=== PATIENT | male | born 1995 | race African-American/Black ===

== ENCOUNTER 2016-12-12 15:20 | Emergency (ER) | payer SELFPAY ==
[~2016-12-12] VITALS: Ht 167.6 cm; Wt 70.5 kg
[~2016-12-12 15:20] MED LIST: CHLO.12%30 SSP; CLIN150 PO
[2016-12-12 15:22] VITALS: BP 113/63; PULSE 57; RESP 16; TEMP 98.6; O2SAT 97
--- NOTE | 2016-12-12 15:38 | PD ---
Physical Exam Date Seen by Provider: December 12, 2016 Time Seen by Provider: 15:37 Narrative Pt presents to obtain a note to go back to work after having an injury to his foot from walking 7 miles. He called out of work today and needs a note to go back. VSS, awaiting bed placement. Data Data Last Documented VS Vital Signs Date Time Temp Pulse Resp B/P Pulse Ox O2 Delivery O2 Flow Rate FiO2 12/12/16 15:22 98.6 57 16 113/63 97 Room Air [facility] Supervised Visit with GOSIA: Ana Cristina Olsen December 12, 2016 15:38
--- NOTE | 2016-12-12 16:32 | PD ---
HPI Chief Complaint: Medical Clearance Time Seen by Provider: 16:29 Travel History International Travel<30 days: No Contact w/Intl Traveler<30days: No Traveled to known affect area: No History of Present Illness HPI 21-year-old male presents emergency department requesting an note to return back to work because he called out today. He said he has been walking several miles to and from work for the last few days and he doesn't want to do it again tonight after work so he called out. 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 He has no emergent medical complaints. No other modifying factors or associated signs and symptoms. History Social History Alcohol Use: Yes (OCCASIONAL) Tobacco Use: No Allergies-Medications (Allergen,Severity, Reaction): Coded Allergies: Penicillin (Verified Allergy, Intermediate, hives and itching, 12/30/13) Uncoded Allergies: ALL 'CILLINS (Allergy, Severe, 07/12/13) Reported Meds & Prescriptions Reported Meds & Active Scripts Active Cleocin (Clindamycin HCl) 150 Mg Cap 300 Mg PO Q6 10 Days Peridex Oral Rinse (Chlorhexidine Gluconate) 0.12 % Sabra 15 Ml SSP Q12HR 10 Days Review of Systems Except as stated in HPI: all other systems reviewed are Neg Physical Exam Narrative GENERAL: Well-nourished, well-developed male patient, in no acute distress SKIN: Warm and dry. HEAD: Atraumatic. Normocephalic. EYES: Pupils equal and round. No scleral icterus. No injection or drainage. ENT: Mucosa pink and moist. Airway patent. NECK: Trachea midline. CARDIOVASCULAR: Regular rate. RESPIRATORY: No accessory muscle use. GASTROINTESTINAL: Flat. MUSCULOSKELETAL: No obvious deformities. No clubbing. No cyanosis. No edema. NEUROLOGICAL: Awake and alert. Oriented 3. No obvious cranial nerve deficits. Motor grossly within normal limits. Normal speech. PSYCHIATRIC: Appropriate mood and affect; insight and judgment normal. Data Data Last Documented VS Vital Signs Date Time Temp Pulse Resp B/P Pulse Ox O2 Delivery O2 Flow Rate FiO2 12/12/16 15:22 98.6 57 16 113/63 97 Room Air MDM Medical Screen Exam Complete: Yes Emergency Medical Condition: No Primary Impression: Encounter for medical screening examination Condition: Stable Lori Fermin [facility] December 12, 2016 16:32
== END 2016-12-12 16:38 | disposition left against medical advice (07) ==
LOC: NEPK 15:20
DX: Z02.89 Encounter for other administrative examinations (principal)
CPT/HCPCS: 99281

== ENCOUNTER 2017-01-15 17:52 | Emergency (ER) | payer OTHER ==
[~2017-01-15] VITALS: Ht 167.6 cm; Wt 72.0 kg
[2017-01-15 17:55] VITALS: BP 126/77; PULSE 104; RESP 24; TEMP 97; O2SAT 95
--- NOTE | 2017-01-15 18:11 | PD ---
HPI . Right hand laceration sustained earlier today Chief Complaint: Laceration/Skin Injury Time Seen by Provider: 18:10 Travel History International Travel<30 days: No Contact w/Intl Traveler<30days: No Traveled to known affect area: No History of Present Illness HPI 21-year-old male here with a right hand laceration that he sustained while at work. Patient tells me that he saw something falling off of a shelf and his natural reflux was to catch it. Unfortunately with a knife and cut right through his right hand between his thumb and index finger. He does not recall the date of his last tetanus. He rates the pain in this area as 10/10 without radiation elsewhere. He is able to move all of his digits of the right hand. PFSH Past Medical History Developmental Delay: No Diminished Hearing: No Musculoskeletal: Yes (recurrent left shoulder dislocation) Psychiatric: Yes (ADHD,ANGER ISSUES) Immunizations Current: Yes Seizures: No Past Surgical History Appendectomy: No Cholecystectomy: No Other Surgery: No Social History Alcohol Use: Yes (OCCASIONAL) Tobacco Use: No Substance Use: No (DENIES) Allergies-Medications (Allergen,Severity, Reaction): Coded Allergies: Penicillin (Verified Allergy, Intermediate, hives and itching, 12/30/13) Uncoded Allergies: ALL 'CILLINS (Allergy, Severe, 07/12/13) Reported Meds & Prescriptions Reported Meds & Active Scripts Active Tramadol (Tramadol HCl) 50 Mg Tab 50 Mg PO Q8H PRN Bactrim DS (Sulfamethoxazole-Trimethoprim) 800-160 Mg Tab 1 Tab PO BID Review of Systems General / Constitutional: No: Fever Eyes: No: Visual changes HENT: No: Headaches Cardiovascular: No: Chest Pain or Discomfort Respiratory: No: Shortness of Breath Gastrointestinal: No: Abdominal Pain Genitourinary: No: Dysuria Musculoskeletal: No: Pain Skin: Positive Other (right hand laceration ), No Rash Neurologic: No: Weakness Psychiatric: No: Depression Endocrine: No: Polydipsia Hematologic/Lymphatic: No: Easy Bruising Physical Exam Narrative GENERAL: AAO x 3, no acute distress, Well-nourished, well-developed patient. SKIN: Warm and dry. No visible rashes or bruising. right hand thenar space with laceration, bleeding. approximately 6.5 cm, small arteriole bleeding, HEAD: Normocephalic and atraumatic. EYES: No scleral icterus. No injection or drainage. ENT: No nasal drainage noted. Mucous membranes pink. Airway patent. NECK: Supple, trachea midline. No JVD. CARDIOVASCULAR: Regular rate and rhythm without murmurs, gallops, or rubs. RESPIRATORY: Breath sounds equal bilaterally. No accessory muscle use. No rhonchi or rales. GASTROINTESTINAL: Abdomen soft, non-tender, nondistended. EXTREMITIES: No cyanosis or edema. digits of right hand move normally, cap refill normal BACK: Nontender without obvious deformity. No CVA tenderness. 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 Data Data Last Documented VS Vital Signs Date Time Temp Pulse Resp B/P Pulse Ox O2 Delivery O2 Flow Rate FiO2 01/15/17 17:55 97.0 104 24 126/77 95 Room Air Orders Lidocai-Epi 1%-1:100,000 Inj (Xylocaine- (01/15/17 18:15) Tetanus/Diphtheria Tox Adult (Tetanus/Di (01/15/17 18:30) Morphine Inj (Morphine Inj) (01/15/17 18:30) Mandatory Outpatient Referral (01/15/17 19:19) Wound Care (01/15/17 19:20) Support Splint (01/15/17 19:28) MDM Medical Decision Making Medical Screen Exam Complete: Yes Emergency Medical Condition: Yes Medical Record Reviewed: Yes Differential Diagnosis right hand laceration, arteriole bleed, less likely fracture, less likely amputation Narrative Course 21-year-old male here with complaints of right hand laceration that he sustained while at work. Dr. Craft assessed the laceration and also recommends simple repair to the area. Patient gave verbal consent to repair. 12 sutures were placed to the right thenar space. Patient tolerated without incident. He has been given antibiotics to cover for infections. I've recommended outpatient hand follow-up. I recommend wound recheck in 2 days. We have discussed the signs of infections and when to return earlier to the emergency department. I've also provided him with some pain medications. I discussed that he needs to stay home for the next day to allow the area to heal. I also recommend caution at work. I explained to the patient that he will need to have the sutures removed in 7- 10 days. Patient given thumb spica splint to protect the area. Prior to dc, the bleeding had ceased and patient was doing well. Patient verbalized understanding of instructions, questions were answered, and thanked me for their care. I advised them if their condition worsens, please return to the nearest emergency room for further care. Procedures Procedure Narrative LACERATION LOCATION: right thenar space LENGTH: 6.5 cm NUMBER OF STITCHES/NU: 12 REPAIR: The area of the laceration was prepped with Betadine and sterilely draped. The laceration was infiltrated with 1% lidocaine with epi. The wound was copiously irrigated and explored without evidence of foreign body, tendon injury or neurovascular injury. There was a small arteriole bleed. The wound was closed using 4-0 Ethilon. This was a single layer repair. A sterile dressing was applied. The patient was advised to keep the dressing clean and dry. Patient tolerated the procedure well. Diagnosis Primary Impression: Laceration of right hand Qualified Code: S61.411A - Laceration of right hand without foreign body, initial encounter Patient Instructions: General Instructions Departure Forms: Tests/Procedures, Work Release Enter return to work date: Jan 17, 2017 Special Instructions: try not to hit or disturb the sutures in the right hand Additional Instructions: Please return to emergency department if your symptoms return or worsen. Follow up with your primary care provider. Take medications as prescribed. Someone will contact you regarding the hand referral. Keep area clean and dry. Use gauze as we discussed and change 1-2 times a day. Watch for signs of infection: fever, redness, swelling, warmth, pus or drainage , red streaks around the cut, and increased pain from the area. If you received a tetanus shot, you may experience tenderness at the injection site. This is normal. Return to the emergency department in 2 days for a wound check. These sutures (12) will need to be removed in 7-10 days, please return to the ED for removal or follow up with your primary care provider. Med/Other Pt SpecificInfo: Prescription(s) given Scripts Tramadol 50 Mg Tab50 Mg PO Q8H PRN (PAIN) #12 TAB Ref 0 Prov:Perico Craft MD 01/15/17 Sulfamethoxazole-Trimethoprim (Bactrim DS)800-160 Mg Tab1 Tab PO BID #20 TAB Prov:Perico Craft MD 01/15/17 Disposition: 01 DISCHARGE HOME Condition: Stable Cris Briones Jan 15, 2017 18:10
[2017-01-15] MEDS ORDERED: LIDOCAINE 1%/EPINEPHrine 1:100,000 SOLN 20 ML VIAL INFIL ONE (18:15)
[2017-01-15] MEDS ORDERED: MORPHINE SULFATE 4 MG/ML INJ IV PUSH ONE (18:30)
[2017-01-15] MEDS ORDERED: TETANUS/DIPHTHERIA TOXOID ADULT 0.5 ML VIAL IM ONE (18:30)
[2017-01-15] MEDS ORDERED: BACT800T5 PO (19:15)
[2017-01-15] MEDS ORDERED: TRAM50TA PO (19:15)
== END 2017-01-15 19:49 | disposition home or self-care (01) ==
LOC: NEPD 17:52
DX: S61.411A Laceration without foreign body of right hand, initial encounter (principal); W26.0XXA Contact with knife, initial encounter; F90.9 Attention-deficit hyperactivity disorder, unspecified type
CPT/HCPCS: 12002; 96374; 99284; J2270; L3908

== ENCOUNTER 2017-01-28 10:35 | Emergency (ER) | payer OTHER ==
[~2017-01-28] VITALS: Ht 167.6 cm; Wt 80.0 kg
[~2017-01-28 10:35] MED LIST changes: +BACT800T5 PO; -CHLO.12%30 SSP; -CLIN150 PO; +TRAM50TA PO
[2017-01-28 10:36] VITALS: BP 120/58; PULSE 68; RESP 15; TEMP 98.1; O2SAT 98
--- NOTE | 2017-01-28 10:57 | PD ---
HPI Chief Complaint: Injury Time Seen by Provider: 10:57 Travel History International Travel<30 days: No Contact w/Intl Traveler<30days: No Traveled to known affect area: No History of Present Illness HPI 21-year-old Afro-[place] male presents the emergency department status post Worker's Comp. injury to the right first webspace with deep laceration between his thumb and index finger. Patient recently was seen on January 15, and wound was closed, patient was placed on Bactrim and some spica splint. Follow-up was supposed to be set up but never occurred according to the patient. She continues to have pain and stiffness in the right thumb, but denies drainage or fevers, or swelling of the first webspace. There are [address] at this time. Patient is not back to work yet. He has not been contacted by his Worker's Comp. provider. I'm not sure that this was originally billed as a Worker's Comp. on his first visit. 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 He denies numbness or tingling in the thumb itself. Pain is still 5 out of 10 worse with movement. He has increased stiffness in this area. He is allergic to "cillins". PFSH Past Medical History ADHD: Yes Developmental Delay: No Diminished Hearing: No Musculoskeletal: Yes (recurrent left shoulder dislocation) Psychiatric: Yes (ADHD,ANGER ISSUES) Immunizations Current: Yes Seizures: No ?: Not Past Surgical History Appendectomy: No Cholecystectomy: No Other Surgery: No Social History Alcohol Use: No Tobacco Use: Yes Substance Use: No Allergies-Medications (Allergen,Severity, Reaction): Coded Allergies: Penicillin (Verified Allergy, Intermediate, hives and itching, 01/28/17) Uncoded Allergies: ALL 'CILLINS (Allergy, Severe, 07/12/13) Reported Meds & Prescriptions Reported Meds & Active Scripts Active Tramadol (Tramadol HCl) 50 Mg Tab 50 Mg PO Q8H PRN Bactrim DS (Sulfamethoxazole-Trimethoprim) 800-160 Mg Tab 1 Tab PO BID Review of Systems Except as stated in HPI: all other systems reviewed are Neg General / Constitutional: No: Fever Eyes: No: Visual changes HENT: No: Headaches Cardiovascular: No: Chest Pain or Discomfort Respiratory: No: Shortness of Breath Gastrointestinal: No: Abdominal Pain Genitourinary: No: Dysuria Musculoskeletal: No: Pain Skin: No Rash Neurologic: No: Weakness Psychiatric: No: Depression Endocrine: No: Polydipsia Hematologic/Lymphatic: No: Easy Bruising Physical Exam Narrative GENERAL: Patient appears in no acute distress. SKIN: Warm and dry. Normal color. Normal turgor. Patient has what appears to be a well healing 6 cm laceration to the right first webspace with [address]. There does not appear to be significant wound dehiscence or signs of infection. The first webspace is tender with palpation however and range of motion is limited secondary to pain and stiffness. HEAD: Atraumatic. Normocephalic. EYES: Pupils equal and round. No scleral icterus. No injection or drainage. ENT: No nasal bleeding or discharge. Mucous membranes pink and moist. NECK: Trachea midline. No JVD. CARDIOVASCULAR: Regular rate and rhythm. RESPIRATORY: No accessory muscle use. Clear to auscultation. Breath sounds equal bilaterally. MUSCULOSKELETAL: Extremities without clubbing, cyanosis, or edema. No obvious deformities. Patient is limited motion of the right thumb secondary to pain in the first webspace. Pharynx seems to be intact without obvious numbness as well to the distal thumb or index finger. 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 NEUROLOGICAL: Awake and alert. No obvious cranial nerve deficits. Motor grossly within normal limits. Five out of 5 muscle strength in the arms and legs. Normal speech. PSYCHIATRIC: Appropriate mood and affect; insight and judgment normal. Data Data Last Documented VS Vital Signs Date Time Temp Pulse Resp B/P Pulse Ox O2 Delivery O2 Flow Rate FiO2 01/28/17 10:36 98.1 68 15 120/58 98 MDM Medical Decision Making Medical Screen Exam Complete: Yes Emergency Medical Condition: Yes Differential Diagnosis Workplace injury. Deep laceration to the right first webspace. Right thumb pain. Narrative Course Patient is medically stable at time of exam. Call was placed to Dr. Etienne, the hand surgeon drone software development engineer for the patient to be discussed. 1145 hrs. patient stated he had to leave to take his daughter to have an appointment. I discussed with him the need to stay and speak to the hand surgeon prior to him leaving. Patient elected to leave [facility]. He states he will return later for follow-up. Diagnosis Primary Impression: Left against medical advice Disposition: 07 AGAINST MEDICAL ADVICE Condition: Stable Efrain Enamorado Jan 28, 2017 10:57
== END 2017-01-28 11:49 | disposition left against medical advice (07) ==
LOC: NEPK 10:35
DX: S61.411D Laceration without foreign body of right hand, subsequent encounter (principal); F90.9 Attention-deficit hyperactivity disorder, unspecified type; Z72.0 Tobacco use; W26.0XXD Contact with knife, subsequent encounter; Y93.G9 Activity, other involving cooking and grilling; Y92.511 Restaurant or cafe as the place of occurrence of the external cause; Y99.0 Civilian activity done for income or pay
CPT/HCPCS: 99281

== ENCOUNTER 2017-01-28 16:18 | Emergency (ER) | payer OTHER ==
[~2017-01-28] VITALS: Ht 167.6 cm; Wt 73.0 kg
[2017-01-28 16:20] VITALS: BP 133/68; PULSE 81; RESP 15; TEMP 98.3; O2SAT 98
--- NOTE | 2017-01-28 16:40 | PD ---
Physical Exam Date Seen by Provider: Jan 28, 2017 Time Seen by Provider: 16:38 Data Data Last Documented VS Vital Signs Date Time Temp Pulse Resp B/P Pulse Ox O2 Delivery O2 Flow Rate FiO2 01/28/17 16:20 98.3 81 15 133/68 98 MDM Supervised Visit with GOSIA: No Narrative Course 21 YO right hand dom male presents to the ED for evaluation of laceration of the right hand. Sutures placed ~02/16 or 02/17. ---F/C, redness, pain. Vitals reviewed. Patient seen in triage, awaiting bed placement. Maribell Betts Jan 28, 2017 16:40
--- NOTE | 2017-01-28 16:47 | PD ---
HPI Chief Complaint: Wound/Suture/Staple Re-Check Time Seen by Provider: 16:43 Travel History International Travel<30 days: No Contact w/Intl Traveler<30days: No Traveled to known affect area: No History of Present Illness HPI 21-year-old Afro-[place] male presents to emergency department status post workplace injury on January 15 consisting of a laceration to the right first webspace. This was repaired in the ED with 12 sutures. Patient was here earlier today but had to leave AMA due to his daughter's medical appointment. At that time I was in the process of calling the hand surgeon regarding this patient. Patient continues to have pain and decreased range of motion secondary to discomfort in the first webspace of the right hand. Patient has good pincher strength, but has limited extension and flexion laterally of the thumb secondary to pain. There are [address] It appears to be well- healed without obvious cellulitis or wound dehiscence. Sutures were not removed previously this morning as I was waiting to hear from the hand surgeon for further instruction. Please see previous note from this morning. Patient is allergic to penicillin. PFSH Past Medical History ADHD: Yes Developmental Delay: No Diminished Hearing: No Musculoskeletal: Yes (recurrent left shoulder dislocation) Psychiatric: Yes (ADHD,ANGER ISSUES) Immunizations Current: Yes Seizures: No Past Surgical History Appendectomy: No Cholecystectomy: No Other Surgery: No Social History Alcohol Use: No Tobacco Use: Yes Substance Use: No Allergies-Medications (Allergen,Severity, Reaction): Coded Allergies: Penicillin (Verified Allergy, Intermediate, hives and itching, 01/28/17) Uncoded Allergies: ALL 'CILLINS (Allergy, Severe, 07/12/13) Reported Meds & Prescriptions Reported Meds & Active Scripts Active Tramadol (Tramadol HCl) 50 Mg Tab 50 Mg PO Q8H PRN Bactrim DS (Sulfamethoxazole-Trimethoprim) 800-160 Mg Tab 1 Tab PO BID Review of Systems Except as stated in HPI: all other systems reviewed are Neg General / Constitutional: No: Fever Eyes: No: Visual changes HENT: No: Headaches Cardiovascular: No: Chest Pain or Discomfort Respiratory: No: Shortness of Breath Gastrointestinal: No: Abdominal Pain Genitourinary: No: Dysuria Musculoskeletal: No: Pain Skin: No Rash Neurologic: No: Weakness Psychiatric: No: Depression Endocrine: No: Polydipsia Hematologic/Lymphatic: No: Easy Bruising Physical Exam Narrative GENERAL: Patient is in no acute distress. SKIN: Warm and dry. Normal color. Normal turgor. Patient has well healing laceration to the first was is of the right hand with [address]. There is no obvious signs of cellulitis or abscess. No significant wound dehiscence. HEAD: Atraumatic. Normocephalic. EYES: Pupils equal and round. No scleral icterus. No injection or drainage. ENT: No nasal bleeding or discharge. Mucous membranes pink and moist. Pharynx is clear. Airway is patent NECK: Trachea midline. Supple nontender. CARDIOVASCULAR: Regular rate and rhythm. RESPIRATORY: No accessory muscle use. Clear to auscultation. Breath sounds equal bilaterally. MUSCULOSKELETAL: Extremities without clubbing, cyanosis, or edema. No obvious deformities. Right hand range of motion is intact but somewhat limited in flexion and with pinching of the first webspace. Patient has tenderness to this area. NEUROLOGICAL: Awake and alert. No obvious cranial nerve deficits. Motor grossly within normal limits. Five out of 5 muscle strength in the arms and legs. Normal speech. PSYCHIATRIC: Appropriate mood and affect; insight and judgment normal. Data Data Last Documented VS Vital Signs Date Time Temp Pulse Resp B/P Pulse Ox O2 Delivery O2 Flow Rate FiO2 01/28/17 16:20 98.3 81 15 133/68 98 MDM Medical Decision Making Medical Screen Exam Complete: Yes Emergency Medical Condition: Yes Medical Record Reviewed: Yes Differential Diagnosis Workplace injury. Right first webspace laceration. Wound check. Narrative Course Call was placed to Dr. Etienne, the hand surgeon stone polisher to discuss the patient. Patient was discussed with Dr. Etienne who will see the patient in follow-up. No sutures removed at this time. Patient is to keep area clean and dry as discussed. Patient is to use thumb spica splint as previously prescribed. Patient call Dr. Etienne's office for follow-up appointment. Worker's Comp. paperwork is completed with limited use of right hand and must keep the area dry until cleared by hand surgeon. Diagnosis Primary Impression: Laceration of right hand Qualified Code: S61.411D - Laceration of right hand without foreign body, subsequent encounter Additional Impression: Work place accident Referrals: Saima Etienne MD call for appointment Patient Instructions: General Instructions, Laceration (ED) Additional Instructions: No sutures removed at this time. Patient is to keep area clean and dry as discussed. Patient is to use thumb spica splint as previously prescribed. Patient call Dr. Etienne's office for follow-up appointment. Worker's Comp. paperwork is completed with limited use of right hand and must keep the area dry until cleared by hand surgeon. Med/Other Pt SpecificInfo: No Meds Exist/No RX given Disposition: 01 DISCHARGE HOME Condition: Stable Efrain Enamorado Jan 28, 2017 16:47
== END 2017-01-28 17:14 | disposition home or self-care (01) ==
LOC: NEPK 16:18
DX: S61.411D Laceration without foreign body of right hand, subsequent encounter (principal); W26.0XXD Contact with knife, subsequent encounter
CPT/HCPCS: 99281

== ENCOUNTER 2017-12-09 18:10 | Emergency (ER) | payer SELFPAY | END 2017-12-09 20:17 | disposition home or self-care (01) | LOC: NEPK 18:10 | DX: S93.401A Sprain of unspecified ligament of right ankle, initial encounter (principal); W10.9XXA Fall (on) (from) unspecified stairs and steps, initial encounter; Y93.02 Activity, running; Y92.009 Unspecified place in unspecified non-institutional (private) residence as the place of occurrence of the external cause | CPT/HCPCS: 73610; 99283 ==